=== PATIENT | male | born 1995 | race Two or more races ===

== ENCOUNTER 2018-03-21 18:19 | Emergency (ER) | payer OTHER ==
[~2018-03-21] VITALS: Ht 175.3 cm; Wt 84.4 kg
== END 2018-03-21 20:05 | disposition home or self-care (01) ==
LOC: ER 18:19
DX: S61.216A Laceration without foreign body of right little finger without damage to nail, initial encounter (principal); W25.XXXA Contact with sharp glass, initial encounter; Y93.89 Activity, other specified; Y92.69 Other specified industrial and construction area as the place of occurrence of the external cause; Y99.8 Other external cause status